=== PATIENT | female | born 1970 | race Caucasian/White ===

== ENCOUNTER 2016-12-31 14:21 | Emergency (ER) | payer MEDICAID ==
[~2016-12-31] VITALS: Wt 89.0 kg
[2016-12-31] MEDS ORDERED: HYDROmorphONE 1 MG/ML SYG IM STA (16:25)
[2016-12-31] MEDS ORDERED: ONDANSETRON (ODT) 4 MG TAB ODT STA (16:25)
[2016-12-31] MEDS ORDERED: HYDR-902 PO (16:27)
[2016-12-31] MEDS ORDERED: IBUP800T25 PO (16:27)
[2016-12-31] MEDS ORDERED: METH-70 PO (16:27)
[2016-12-31] MEDS ORDERED: IBUPROFEN 800 MG TAB PO ONE (16:30)
--- NOTE | 2016-12-31 16:30 | ERD ---
ER Documentation Chief Complaint Date/Time DATE: 12/31/16 TIME: 16:28 Chief Complaint FLANK PAIN X 1 WEEK HPI This is a 46-year-old female complaining of low back pain for 1 week. The pain is located in the lower lumbar region at the L4-5 S1 midline with occasional radiculopathy down the back of both legs to knees. There is no loss of bowel or bladder. No numbness weakness. Pain is described as sharp worse with movement better with rest. No dysuria no fever ROS All systems reviewed and are negative except as per history of present illness. Medications Home Meds Active Scripts Hydrocodone/Acetaminophen ([place] 10-325 Tablet) 1 Each Tablet, 1 TAB PO Q6H Y for PAIN, #20 TAB Prov:YOAV NUÑEZSTOLOS A. DO 12/31/16 Methocarbamol* (Robaxin*) 750 Mg Tablet, 750 MG PO TID, #30 TAB Prov:LEKKOSAPOSTOLOS A. DO 12/31/16 Ibuprofen* (Motrin*) 800 Mg Tab, 800 MG PO Q6H Y for PAIN AND OR ELEVATED TEMP, #30 TAB Prov:LEKKOS,APOSTOLOS A. DO 12/31/16 Allergies Allergies: Coded Allergies: No Known Allergy (Verified , 12/31/16) PMhx/Soc Medical and Surgical Hx: pt denies Medical Hx, pt denies Surgical Hx Hx Alcohol Use: No Hx Substance Use: No Hx Tobacco Use: No Smoking Status: Never smoker FmHx Family History: No coronary disease Physical Exam Vitals Vital Signs Date Time Temp Pulse Resp B/P Pulse Ox O2 Delivery O2 Flow Rate FiO2 12/31/16 14:33 98.0 79 18 136/89 99 Physical Exam Const: Well-developed, well-nourished Head: Atraumatic, normocephalic Eyes: Normal Conjunctiva, PERRLA, EOMI, normal sclera, no nystagmus ENT: Normal External Ears, Nose and Mouth, moist mucus membranes. Neck: Full range of motion. No meningismus, no lymphadenopathy. Resp: Clear to auscultation bilaterally, no wheezing, rhonchi, rales Cardio: Regular rate and rhythm, no murmurs, S1 S2 present Abd: Soft, non tender x 4, non distended. Normal bowel sounds, no guarding or rebound, no pulsitile abdominal masses or bruits Skin: No petechiae or rashes, no ecchymosis , no maculopapular rash Back: Reproducible midline tenderness at L4-5, pain is worse with movements no straight leg test bilaterally no saddle anesthesia strength is 5 out of 5 Ext: No cyanosis, or edema, FROM x 4, normal inspection, neurovascularly intact x 4 Neur: Awake and alert, STR 5/5 x 4, sensation intact x 4, no focal findings, cerebellum intact Psych: Normal Mood and Affect Results 24 hrs Current Medications Medications (Trade) Dose Ordered Sig/Stephenie Route PRN Reason Start Time Stop Time Status Last Admin Dose Admin Ibuprofen (Motrin) 800 mg ONCE ONCE PO 12/31/16 16:30 12/31/16 16:31 Hydromorphone HCl (Dilaudid) 1 mg ONCE STAT IM 12/31/16 16:25 12/31/16 16:26 DC Ondansetron HCl (Zofran Odt) 4 mg ONCE STAT ODT 12/31/16 16:25 12/31/16 16:26 DC Procedures/MDM Told home care Departure Diagnosis: Primary Impression: Low back pain Chronicity: acute Back pain laterality: midline Sciatica presence: with sciatica Sciatica laterality: bilateral sciatica Qualified Code: M54.42 - Acute midline low back pain with bilateral sciatica Condition: Stable Patient Instructions: Self-Care for Low Back Pain, Causes of Lumbar (Low Back) Pain WILNER NUÑEZ DO December 31, 2016 16:30
[2016-12-31 17:01] VITALS: BP 132/80; PULSE 78; RESP 18; TEMP 98.3
== END 2016-12-31 17:02 | disposition home or self-care (01) ==
LOC: FTE 14:21
DX: M54.42 Lumbago with sciatica, left side (principal)
CPT/HCPCS: 96372; J1170; Z7502; Z7610